=== PATIENT | female | born 1975 | race African-American/Black ===

== ENCOUNTER 2021-08-14 22:28 | Emergency (ER) | payer OTHER ==
[2021-08-14 22:38] VITALS: BP 105/69; PULSE 77; TEMP 98.1; BMI 29.0
[2021-08-14] MEDS ORDERED: IBUPROFEN 600 MG TABLET (FP) PO ONE (23:41)
[2021-08-15] MEDS ORDERED: IBUPROFEN 600 MG TABLET (FP) PO ONE (00:09)
== END 2021-08-15 00:15 | disposition home or self-care (01) ==
LOC: JER 22:28
DX: M25.511 Pain in right shoulder (principal)
CPT/HCPCS: 73030-TC-RT-FY; 99284-25